=== PATIENT | female | born 1955 | race Hispanic/Latino ===

== ENCOUNTER 2024-06-15 15:36 | Inpatient (IN) | payer SELFPAY ==
[~2024-06-15] VITALS: Ht 132.1 cm; Wt 43.5 kg
[2024-06-15 15:40] VITALS: TEMP 97.7
[2024-06-15 16:18] LABS: BASOPHILS # (AUTO) 0.1 (0.0-0.1); BASOPHILS % 0.5 % (0.0-1.0); EOSINOPHILS % 0.2 % (0.0-6.0); HEMATOCRIT 42.8 % (34.2-44.1); HEMOGLOBIN 13.6 g/dL (12.0-16.0); LYMPHOCYTES # (AUTO) 1.7 (1.0-3.2); LYMPHOCYTES % 8.7 % (18.0-39.1); MEAN CORPUSCULAR HEMOGLOBIN 30.2 pg (28-32); MEAN CORPUSCULAR HGB CONC 31.8 g/dL (31-35); MEAN CORPUSCULAR VOLUME 94.9 fL (81-99); MONOCYTES # (AUTO) 0.7 (0.2-0.8); MONOCYTES % 3.6 % (4.4-11.3); NEUTROPHILS # (AUTO) 16.5 (2.1-6.9); NEUTROPHILS % 86.1 % (38.7-80.0); PLATELET COUNT 195 x10e3/uL (140-360); RED BLOOD COUNT 4.51 x10e6/uL (3.6-5.1); RED CELL DISTRIBUTION WIDTH 12.9 % (11.7-14.4); WHITE BLOOD COUNT 19.15 x10e3/uL (4.8-10.8)
[2024-06-15 16:23] LABS: PROTHROMBIN TIME 13.8 seconds (11.9-14.5)
[2024-06-15 16:24] LABS: PARTIAL THROMBOPLASTIN TIME 33.7 seconds (23.8-35.5)
[2024-06-15 16:32] LABS: ALBUMIN/GLOBULIN RATIO 1.1 (0.8-2.0); ANION GAP 16.7 mmol/L (8-16); BILIRUBIN,TOTAL 0.6 mg/dL (0.2-1.2); CALCIUM 9.3 mg/dL (8.4-10.2); CREATININE, SERUM 1.63 mg/dL (0.57-1.11); POTASSIUM 4.7 mmol/L (3.5-5.1); TOTAL PROTEIN 7.8 g/dL (6.5-8.1)
[2024-06-15] MEDS: Morphine 4mg INJECTION 4 MG/ML INJ IV ONE (16:39)
[2024-06-15] MEDS: ONDANSETRON HCL INJ 2MG/ML 2ML 2 MG/ML VIAL IV STA (16:39)
[2024-06-15] MEDS ORDERED: ONDANSETRON HCL INJ 2MG/ML 2ML 2 MG/ML VIAL IV PRN (17:45)
[2024-06-15] MEDS ORDERED: Morphine 4mg INJECTION 4 MG/ML INJ IV PRN (17:45)
[2024-06-15 18:15] VITALS: PULSE 69; RESP 16
[2024-06-15] MEDS: SODIUM CHLORIDE 0.9% 1000ML 1,000 ML IV SCH (18:52)
[2024-06-15 19:33] VITALS: PULSE 71; RESP 18; O2SAT 98
[2024-06-15 21:00] VITALS: BP 188/78; PULSE 78; RESP 17; TEMP 98.3; O2SAT 100
[2024-06-15 22:56] VITALS: BP 188/78; PULSE 78; RESP 17; TEMP 98.3; O2SAT 100
[2024-06-16] VITALS (8 sets, daily range): BP systolic 141–188; BP diastolic 65–91; PULSE 72–90; RESP 17–20; TEMP 97.5–98.8; O2SAT 96–100
[2024-06-16] MEDS: HYDRALAZINE HCL 20 MG/ML VIAL IV PRN (05:00)
[2024-06-16] MEDS ORDERED: LABETALOL HCL 20 MG/4 ML SYRINGE IV STA (05:53)
[2024-06-16 08:30] LABS: BASOPHILS # (AUTO) 0.1 (0.0-0.1); BASOPHILS % 0.4 % (0.0-1.0); EOSINOPHILS # (AUTO) 0.1 (0.0-0.4); EOSINOPHILS % 0.5 % (0.0-6.0); HEMATOCRIT 43.4 % (34.2-44.1); HEMOGLOBIN 13.8 g/dL (12.0-16.0); LYMPHOCYTES # (AUTO) 1.9 (1.0-3.2); LYMPHOCYTES % 16.2 % (18.0-39.1); MEAN CORPUSCULAR HEMOGLOBIN 29.9 pg (28-32); MEAN CORPUSCULAR HGB CONC 31.8 g/dL (31-35); MEAN CORPUSCULAR VOLUME 94.1 fL (81-99); MONOCYTES # (AUTO) 0.7 (0.2-0.8); MONOCYTES % 5.9 % (4.4-11.3); NEUTROPHILS # (AUTO) 9.1 (2.1-6.9); NEUTROPHILS % 76.5 % (38.7-80.0); PLATELET COUNT 198 x10e3/uL (140-360); RED BLOOD COUNT 4.61 x10e6/uL (3.6-5.1); RED CELL DISTRIBUTION WIDTH 12.9 % (11.7-14.4); WHITE BLOOD COUNT 11.94 x10e3/uL (4.8-10.8)
[2024-06-16 08:48] LABS: ANION GAP 15.3 mmol/L (8-16); CALCIUM 9.1 mg/dL (8.4-10.2); CREATININE, SERUM 1.49 mg/dL (0.57-1.11); POTASSIUM 4.3 mmol/L (3.5-5.1)
[2024-06-16 12:05] LABS: BASOPHILS % 0.2 % (0.0-1.0); HEMATOCRIT 40.8 % (34.2-44.1); HEMOGLOBIN 12.6 g/dL (12.0-16.0); LYMPHOCYTES # (AUTO) 0.8 (1.0-3.2); LYMPHOCYTES % 4.2 % (18.0-39.1); MEAN CORPUSCULAR HEMOGLOBIN 30.1 pg (28-32); MEAN CORPUSCULAR HGB CONC 30.9 g/dL (31-35); MEAN CORPUSCULAR VOLUME 97.6 fL (81-99); MONOCYTES # (AUTO) 0.4 (0.2-0.8); MONOCYTES % 2.1 % (4.4-11.3); NEUTROPHILS # (AUTO) 16.9 (2.1-6.9); NEUTROPHILS % 92.8 % (38.7-80.0); PLATELET COUNT 172 x10e3/uL (140-360); RED BLOOD COUNT 4.18 x10e6/uL (3.6-5.1); RED CELL DISTRIBUTION WIDTH 13.2 % (11.7-14.4); WHITE BLOOD COUNT 18.19 x10e3/uL (4.8-10.8)
[2024-06-16 12:24] LABS: ANION GAP 16.4 mmol/L (8-16); CALCIUM 8.6 mg/dL (8.4-10.2); CREATININE, SERUM 1.53 mg/dL (0.57-1.11)
[2024-06-16 12:29] LABS: POTASSIUM 5.4 mmol/L (3.5-5.1)
[2024-06-16] MEDS: ASPIRIN 81 MG CHEW TAB PO SCH (17:11)
[2024-06-16 23:17] LABS: BILIRUBIN,URINE NEGATIVE (NEGATIVE); CLARITY,URINE CLEAR (CLEAR); COLOR,URINE YELLOW (YELLOW); GLUCOSE, URINE 1+ (NEGATIVE); KETONES,URINE NEGATIVE (NEGATIVE); LEUKOCYTE ESTERASE ,URINE NEGATIVE (NEGATIVE); NITRITE,URINE NEGATIVE (NEGATIVE); PH,URINE 6.5 (5 - 7); PROTEIN,URINE DIPSTICK TRACE (NEGATIVE); URINE UROBILINOGEN 0.2 mg/dL (0.2 - 1)
[2024-06-16 23:56] LABS: BACTERIA,URINE FEW /HPF; EPITHELIAL CELLS,URINE FEW /LPF; RBC,URINE 0-5 /HPF (0-5); RENAL EPITHELIAL CELLS,URINE FEW; WBC,URINE (MAN) 0-5 /HPF (0-5)
[2024-06-17] VITALS: BP 148/67; PULSE 84; RESP 18; TEMP 98.7; O2SAT 100
[2024-06-17 05:00] LABS: BASOPHILS % 0.1 % (0.0-1.0); EOSINOPHILS % 0.1 % (0.0-6.0); HEMOGLOBIN 10.2 g/dL (12.0-16.0); LYMPHOCYTES # (AUTO) 0.9 (1.0-3.2); LYMPHOCYTES % 7.6 % (18.0-39.1); MEAN CORPUSCULAR HEMOGLOBIN 30.3 pg (28-32); MEAN CORPUSCULAR HGB CONC 31.9 g/dL (31-35); MONOCYTES # (AUTO) 0.9 (0.2-0.8); MONOCYTES % 7.7 % (4.4-11.3); NEUTROPHILS # (AUTO) 9.9 (2.1-6.9); NEUTROPHILS % 83.9 % (38.7-80.0); PLATELET COUNT 153 x10e3/uL (140-360); RED BLOOD COUNT 3.37 x10e6/uL (3.6-5.1); WHITE BLOOD COUNT 11.84 x10e3/uL (4.8-10.8)
[2024-06-17 05:28] LABS: ANION GAP 13.5 mmol/L (8-16); CALCIUM 8.4 mg/dL (8.4-10.2); CREATININE, SERUM 1.48 mg/dL (0.57-1.11); POTASSIUM 4.5 mmol/L (3.5-5.1)
[2024-06-17] MEDS ORDERED: CAPTOPRIL25 MG PO (08:11)
[2024-06-17 08:23] VITALS: BP 142/64; PULSE 83; RESP 19; TEMP 98.9; O2SAT 99
[2024-06-17 08:36] VITALS: BP 142/64; PULSE 83; RESP 19; TEMP 98.9; O2SAT 99
[2024-06-17] MEDS: KETOROLAC TROMETHAMINE 30 MG/ML VIAL IV PRN (09:54)
[2024-06-17] MEDS ORDERED: ASPIRIN CHEW81 MG PO (10:57)
[2024-06-17] MEDS ORDERED: ULTRAM 50MG50 MG PO (10:57)
[2024-06-17 12:11] VITALS: BP 183/68; PULSE 82; RESP 18; TEMP 98.3; O2SAT 100
[2024-06-17] MEDS ORDERED: ONDANSETRON HCL 4 MG ORAL DISINTEGRATING TAB PO PRN (13:30)
[2024-06-17 14:39] VITALS: PULSE 82; RESP 18; O2SAT 100
[2024-06-17 16:54] VITALS: BP 149/70; PULSE 90; RESP 19; TEMP 98.8; O2SAT 100
== END 2024-06-17 17:59 | disposition home or self-care (01) | DRG 522 ==
LOC: ER 15:42 → ERHOLD 17:37 → MED/SURG2 18:42
PROVIDERS: ADMIT Internal Medicine; ATTEND Internal Medicine
PROC: 0SR904A Replacement of Right Hip Joint with Ceramic on Polyethylene Synthetic Substitute, Uncemented, Open Approach (ICD-10-PCS; principal; 2024-06-16 08:06)
DX: S72.041A Displaced fracture of base of neck of right femur, initial encounter for closed fracture (principal); N17.9 Acute kidney failure, unspecified; E87.20 Acidosis, unspecified; D72.829 Elevated white blood cell count, unspecified; I12.9 Hypertensive chronic kidney disease with stage 1 through stage 4 chronic kidney disease, or unspecified chronic kidney disease; E11.22 Type 2 diabetes mellitus with diabetic chronic kidney disease; N18.30 Chronic kidney disease, stage 3 unspecified; W01.0XXA Fall on same level from slipping, tripping and stumbling without subsequent striking against object, initial encounter; Y92.009 Unspecified place in unspecified non-institutional (private) residence as the place of occurrence of the external cause; Z79.899 Other long term (current) drug therapy
CPT/HCPCS: 36415; 71045; 72170; 72192; 80048; 80053; 81001; 82948; 85025; 85610; 85730; 86850; 86900; 93005; 94799; 99284; C1713; C1776; J0360; J0690; J1885; J2270; J2405; J7030